=== PATIENT | female | born 1975 | race Caucasian/White ===

== ENCOUNTER 2017-01-27 09:23 | Emergency (ER) | payer BC ==
[~2017-01-27] VITALS: Ht 170.2 cm; Wt 81.8 kg
[2017-01-27] MEDS ORDERED: BIOT50004 PO (09:38)
[2017-01-27] MEDS ORDERED: BENA25CA4 PO (09:38)
[2017-01-27] MEDS ORDERED: MULT1TAB18 PO (09:38)
[2017-01-27] MEDS ORDERED: MORPHINE 4 MG/ML 1ML SYRINGE IV ONE (10:15)
[2017-01-27] MEDS ORDERED: ONDANSETRON 4MG/2ML VIAL (J2405) IV ONE (10:15)
[2017-01-27] MEDS ORDERED: NS 1,000 ML IV ONE (10:15)
[2017-01-27] MEDS ORDERED: GASTROGRAFIN SOLUTION 30ML PO ONE (10:30)
[2017-01-27 10:38] LABS: BASO % 0.4 % (0.0-1.0); EOS # 0.2 K/mm3 (0.0-0.50); EOS % 3.3 % (0.0-3.0); LARGE UNSTAINED CELL # 0.2 K/mm3 (0.0-0.4); LARGE UNSTAINED CELL % 2.7 % (0.0-4.0); LYMPH # 1.8 K/mm3 (1.5-4.5); LYMPH % 27.1 % (24.0-44.0); MEAN CORPUSCULAR HGB CONC 34.5 g/dl (32.0-36.5); MEAN CORPUSCULAR VOLUME 86.8 fl (80.0-96.0); MONO # 0.5 K/mm3 (0.0-0.8); MONO % 7.4 % (0.0-5.0); NEUTROPHILS # 3.6 K/mm3 (1.8-7.7); NEUTROPHILS % 59.1 % (36.0-66.0); PLATELET COUNT, AUTOMATED 291 k/mm3 (150-450); WHITE BLOOD COUNT 6.1 K/mm3 (4.0-10.0)
[2017-01-27] MEDS ORDERED: GASTROGRAFIN SOLUTION 30ML (Q9963) PO ONE (11:00)
[2017-01-27 11:05] LABS: ALBUMIN 3.9 GM/DL (3.2-5.2); ALBUMIN/GLOBULIN RATIO 1.18 (1.00-1.93); ALKALINE PHOSPHATASE 88 U/L (45-117); ALT/SGPT 28 U/L (12-78); AMYLASE 58 U/L (25-115); ANION GAP 6 MEQ/L (8-16); AST/SGOT 20 U/L (15-37); BILIRUBIN,DIRECT < 0.1 MG/DL (0.0-0.2); BILIRUBIN,TOTAL 0.4 MG/DL (0.2-1.0); BLOOD UREA NITROGEN 13 MG/DL (7-18); CALCIUM LEVEL 9.5 MG/DL (8.5-10.1); CARBON DIOXIDE LEVEL 28 MEQ/L (21-32); CHLORIDE LEVEL 103 MEQ/L (98-107); CREATININE FOR GFR 0.74 MG/DL (0.55-1.02); GLOMERULAR FILTRATION RATE > 60.0 (>58); GLUCOSE, FASTING 88 MG/DL (70-105); POTASSIUM SERUM 4.4 MEQ/L (3.5-5.1); SODIUM LEVEL 137 MEQ/L (136-145); TOTAL PROTEIN 7.2 GM/DL (6.4-8.2)
[2017-01-27] MEDS ORDERED: ISOVUE-370 76% 100ML VIAL (Q9967) As Ordered ONE (11:40)
--- NOTE | 2017-01-27 12:53 | REP ---
CT of the abdomen and pelvis with IV and bowel contrast: There are no comparison studies. The visualized lung fraser are unremarkable. The hepatic parenchyma, gallbladder, pancreas and spleen are unremarkable. The adrenals, kidneys and abdominal aorta are unremarkable. There is no bowel distension. The mesentery is unremarkable. There is wall thickening of the descending colon and sigmoid colon compatible with colitis in the appropriate clinical context. There are no diverticula. Pelvis: There is a hysterectomy. Vaginal cuff and adnexa are unremarkable. The bladder is unremarkable. The appendix is unremarkable. There is no ascites or adenopathy. Impression: Nonspecific wall thickening of the descending colon and sigmoid colon. In the appropriate clinical context this could represent colitis, otherwise could be artifact from under distension. No ascites, mass or adenopathy. No bowel distension or obstruction. Otherwise, negative CT study of the abdomen and pelvis. Signed by Arcadio Ramos MD 01/27/2017 12:44 P
[2017-01-27] MEDS ORDERED: FLAG500T PO (12:59)
[2017-01-27] MEDS ORDERED: CIPR-249 PO (12:59)
[2017-01-27] MEDS ORDERED: CIPROFLOXACIN 500 MG TAB PO ONE (13:00)
[2017-01-27] MEDS ORDERED: metroNIDAZOLE (FLAGYL) 500 MG TAB PO ONE (13:00)
[2017-01-27 13:09] VITALS: BP 95/61
== END 2017-01-27 13:19 | disposition home or self-care (01) ==
LOC: M ED 09:23 → MERGE 09:23 → M ED 13:19
DX: K57.32 Diverticulitis of large intestine without perforation or abscess without bleeding (principal); R10.32 Left lower quadrant pain; R11.2 Nausea with vomiting, unspecified; R19.7 Diarrhea, unspecified; G47.33 Obstructive sleep apnea (adult) (pediatric); M79.7 Fibromyalgia; F33.8 Other recurrent depressive disorders; Z88.0 Allergy status to penicillin; Z79.899 Other long term (current) drug therapy
CPT/HCPCS: 36415; 74177; 80048; 80076; 81001; 82150; 83690; 85025; 96361; 96374; 96375; 99284; J2405; Q9963; Q9967

== ENCOUNTER → 2017-02-18 | Outpatient (CLI) | payer BC ==
[~2017-02-18] MED LIST: BENA25CA4 PO; BIOT50004 PO; CIPR-249 PO; FLAG500T PO; MULT1TAB18 PO
--- NOTE | 2017-02-18 09:19 | REPMRS ---
Patient History The patient states she has not had a clinical breast exam in over a year. Patient is postmenopausal. Family history of colorectal cancer in father at age 50 or over. Digital Woman Screen Mammo: February 18, 2017 - Exam #: [id number] Bilateral CC and MLO view(s) were taken. Technologist: Shasta Sheldon, Technologist FINDINGS: The breast tissue is heterogeneously dense. This may lower the sensitivity of mammography. There is no evidence of cancer on this mammogram. ASSESSMENT: BI-RADS/ACR category 2 mammogram. Benign finding(s). Recommendation Routine screening mammogram of both breasts in 1 year (for women over age 40). This mammogram was interpreted with the aid of an FDA-approved computer-aided dectection system. Electronically Signed By: Arcadio Ruano MD 02/18/17 0919
== END ==
LOC: M WHC 08:22
PROVIDERS: ATTEND Hospitalist
DX: Z12.31 Encounter for screening mammogram for malignant neoplasm of breast (principal)

== ENCOUNTER → 2017-06-26 | Outpatient (REF) | payer BC ==
[2017-06-26 18:54] LABS: FOLATE 22.7 NG/ML
== END ==
LOC: M SFHCPLAZ 14:29
DX: L21.9 Seborrheic dermatitis, unspecified (principal)

== ENCOUNTER → 2017-07-08 | Outpatient (REF) | payer BC ==
[2017-07-08 18:15] LABS: BASO % 0.4 % (0.0-1.0); EOS # 0.3 10^3/uL (0.0-0.50); EOS % 3.6 % (0.0-3.0); HEMATOCRIT 39.3 % (36.0-47.0); HEMOGLOBIN 12.9 g/dl (12.0-16.0); IMMATURE GRANULOCYTE % 0.2 % (0-0); LYMPH # 2.4 10^3/uL (1.5-4.5); LYMPH % 29.2 % (24.0-44.0); MEAN CORPUSCULAR HEMOGLOBIN 28.8 pg (27.0-33.0); MEAN CORPUSCULAR HGB CONC 32.8 g/dl (32.0-36.5); MEAN CORPUSCULAR VOLUME 87.7 fl (80.0-96.0); MONO # 0.8 10^3/uL (0.0-0.8); MONO % 9.2 % (0.0-5.0); NEUTROPHILS # 4.7 10^3/uL (1.8-7.7); NEUTROPHILS % 57.4 % (36.0-66.0); PLATELET COUNT, AUTOMATED 321 10^3/uL (150-450); RED BLOOD COUNT 4.48 10^6/uL (4.00-5.40); RED CELL DISTRIBUTION WIDTH 11.7 % (11.5-14.5); WHITE BLOOD COUNT 8.2 10^3/uL (4.0-10.0)
[2017-07-08 18:39] LABS: LIPASE 307 U/L (73-393)
== END ==
LOC: M SFHCPLAZ 15:20
DX: R10.32 Left lower quadrant pain (principal)
CPT/HCPCS: 83690

== ENCOUNTER → 2017-10-20 | Outpatient (CLI) | payer BC | LOC: M SMT 14:28 | DX: M25.552 Pain in left hip (principal) | CPT/HCPCS: 73502 ==

== ENCOUNTER → 2018-02-14 | Outpatient (REF) | payer BC ==
[2018-02-14 22:28] LABS: APPEARANCE, URINE CLOUDY (CLEAR); BACTERIA, URINE AUTO NEGATIVE (NEGATIVE); BILIRUBIN, URINE AUTO NEGATIVE (NEGATIVE); BLOOD, URINE BLOOD 3+ (NEGATIVE); COLOR, URINE YELLOW (YELLOW); GLUCOSE, URINE (UA) AUTO NEGATIVE (NEGATIVE); KETONE, URINE AUTO NEGATIVE (NEGATIVE); LEUKOCYTE ESTERASE, URINE AUTO 3+ (NEGATIVE); MUCUS, URINE SMALL (NEGATIVE); NITRITE, URINE AUTO NEGATIVE (NEGATIVE); PROTEIN, URINE AUTO 1+ mg/dL (NEGATIVE); RBC, URINE AUTO 48 /HPF (0-3); SPECIFIC GRAVITY URINE AUTO 1.027 (1.002-1.035); SQUAMOUS EPITHELIAL CELL UR AU 0 /HPF (0-6); TRANSITIONAL EPITHELIAL AUTO 1 /HPF; UROBILINOGEN, URINE AUTO 0.2 mg/dL (0.0-2.0); WBC, URINE AUTO TNTC /HPF (0-3)
== END ==
LOC: M LAB REF 22:05
DX: N39.0 Urinary tract infection, site not specified (principal)
CPT/HCPCS: 81001

== ENCOUNTER 2018-09-04 04:10 | Emergency (ER) | payer BC ==
[~2018-09-04] VITALS: Ht 170.2 cm; Wt 82.0 kg
[2018-09-04 04:55] LABS: BASO % 0.4 % (0.0-1.0); EOS # 0.2 10^3/uL (0.0-0.50); EOS % 2.2 % (0.0-3.0); HEMATOCRIT 37.8 % (36.0-47.0); HEMOGLOBIN 12.8 g/dl (12.0-15.5); LYMPH # 1.9 10^3/uL (1.5-4.5); LYMPH % 27.6 % (24.0-44.0); MEAN CORPUSCULAR HGB CONC 33.9 g/dl (32.0-36.5); MEAN CORPUSCULAR VOLUME 88.5 fl (80.0-96.0); MONO # 0.4 10^3/uL (0.0-0.8); MONO % 5.5 % (0.0-5.0); NEUTROPHILS # 4.3 10^3/uL (1.8-7.7); NEUTROPHILS % 63.9 % (36.0-66.0); PLATELET COUNT, AUTOMATED 286 10^3/uL (150-450); RED BLOOD COUNT 4.27 10^6/uL (4.00-5.40); WHITE BLOOD COUNT 6.7 10^3/uL (4.0-10.0)
[2018-09-04] MEDS ORDERED: ONDANSETRON 4MG/2ML VIAL (J2405) IV ONE (05:00)
[2018-09-04] MEDS ORDERED: MECLIZINE 25 MG TABLET PO ONE (05:00)
[2018-09-04] MEDS ORDERED: NS 1,000 ML IV ONE (05:00)
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
[2018-09-04 05:12] LABS: BLOOD UREA NITROGEN 17 MG/DL (7-18); CALCIUM LEVEL 8.9 MG/DL (8.5-10.1); CARBON DIOXIDE LEVEL 27 MEQ/L (21-32); CHLORIDE LEVEL 108 MEQ/L (98-107); CREATININE FOR GFR 0.77 MG/DL (0.55-1.30); GLOMERULAR FILTRATION RATE > 60.0 (>58); GLUCOSE, FASTING 116 MG/DL (70-100); POTASSIUM SERUM 4.3 MEQ/L (3.5-5.1); SODIUM LEVEL 141 MEQ/L (136-145)
[2018-09-04] MEDS ORDERED: diazePAM 5 MG TAB PO ONE (06:45)
[2018-09-04] MEDS ORDERED: MECL-68 PO (08:35)
--- NOTE | 2018-09-04 09:56 | REP ---
MRI BRAIN WITHOUT CONTRAST: HISTORY: Vertigo. COMPARISON: MR 04/04/[address] 09/04/2018. There are no areas of abnormal signal intensity in the brain. There is no intraparenchymal hemorrhage, infarct, mass or midline shift. The ventricular system is normal in appearance. There is no extracerebral collection. Mucosal thickening is present in the left ethmoid and right sphenoid sinuses. IMPRESSION: There is no intracranial lesion. Electronically Signed by Tuan Oshea MD 09/04/2018 10:01 A
--- NOTE | 2018-09-04 10:08 | REP ---
MRA BRAIN WITHOUT CONTRAST: HISTORY: Vertigo. 3D [id number] MR angiography was performed at the level of the [place]. There is no aneurysm, arteriovenous malformation or atherosclerotic lesion. The major intracranial vessels are patent. The vertebral arteries are equal in size. IMPRESSION: Normal MRA brain. Electronically Signed by Tuan Oshea MD 09/04/2018 10:22 A
[2018-09-04 10:25] VITALS: BP 118/73
--- NOTE | 2018-09-05 17:27 | ECGEPIP ---
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
== END 2018-09-04 10:33 | disposition home or self-care (01) ==
LOC: M ED 04:10
DX: H81.399 Other peripheral vertigo, unspecified ear (principal); Z88.0 Allergy status to penicillin; Z88.2 Allergy status to sulfonamides; F17.210 Nicotine dependence, cigarettes, uncomplicated
CPT/HCPCS: 70450; 70544; 70551; 80048; 85025; 93005; 93041; 94760; 96374; 99285; J2405

== ENCOUNTER → 2018-11-09 | Outpatient (CLI) | payer BC ==
[~2018-11-09] MED LIST changes: +MECL-68 PO
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
== END ==
LOC: M WUC 16:34
PROVIDERS: ATTEND Family Medicine
DX: M79.672 Pain in left foot (principal)

== ENCOUNTER → 2019-03-05 | Outpatient (REF) | payer OTHER ==
[~2019-03-05] MED LIST changes: +LORA-674 PO; -MECL-68 PO; +MECL1TAB31 PO; +MULTCAP PO
[2019-03-05 16:05] LABS: BASO % 0.6 % (0.0-1.0); EOS # 0.3 10^3/uL (0.0-0.50); HEMATOCRIT 40.3 % (36.0-47.0); HEMOGLOBIN 13.2 g/dl (12.0-15.5); LYMPH # 2.2 10^3/uL (1.5-4.5); LYMPH % 42.9 % (24.0-44.0); MEAN CORPUSCULAR HEMOGLOBIN 29.3 pg (27.0-33.0); MEAN CORPUSCULAR HGB CONC 32.8 g/dl (32.0-36.5); MEAN CORPUSCULAR VOLUME 89.6 fl (80.0-96.0); MONO # 0.5 10^3/uL (0.0-0.8); MONO % 8.9 % (0.0-5.0); NEUTROPHILS # 2.1 10^3/uL (1.8-7.7); NEUTROPHILS % 41.4 % (36.0-66.0); PLATELET COUNT, AUTOMATED 295 10^3/uL (150-450)
== END ==
LOC: M SFHCPLAZ 11:09
PROVIDERS: ATTEND Family Medicine
DX: K57.92 Diverticulitis of intestine, part unspecified, without perforation or abscess without bleeding (principal)

== ENCOUNTER → 2019-03-25 | Outpatient (CLI) | payer OTHER ==
[~2019-03-25] MED LIST changes: +GASTROGRAFIN SOLUTION 30ML (Q9963) As Ordered ONE; +ISOVUE-370 76% 100ML VIAL (Q9967) As Ordered ONE; +MECL-68 PO; -MECL1TAB31 PO
--- NOTE | 2019-03-26 05:27 | REP ---
Clinical: Diverticulitis. Abdominal pain. Technique: Axial contrast enhanced images from the lung bases to the pubic symphysis using oral (per protocol) and 100 ml Isovue 370 intravenous contrast material. Comparison: 01/27/2017. Findings: Lung bases are clear. Visualized heart and pericardium normal. Liver, spleen, pancreas, gallbladder, bilateral adrenal glands and kidneys are normal. The enteric system is without obstruction or acute inflammatory process. Few scattered diverticula noted without acute diverticulitis. Normal terminal ileum and appendix identified in the right lower quadrant. Pelvis demonstrates normal bladder and evidence of prior hysterectomy. No ascites. No free air. No adenopathy. Abdominal aorta and vasculature normal. Musculoskeletal structures are intact. Impression: 1. Few scattered diverticula without acute diverticulitis. 2. No acute abdominopelvic pathology appreciated. Electronically Signed by Sen Reddy MD 03/26/2019 05:19 A
== END ==
LOC: M RAD 15:22
PROVIDERS: ATTEND Obstetrics & Gynecology
DX: K57.90 Diverticulosis of intestine, part unspecified, without perforation or abscess without bleeding (principal)
CPT/HCPCS: 74177; Q9963; Q9967

== ENCOUNTER 2019-04-07 10:55 | Day surgery (SDC) | payer OTHER ==
[~2019-04-07] VITALS: Ht 170.2 cm; Wt 75.3 kg
[~2019-04-07 10:55] MED LIST changes: -GASTROGRAFIN SOLUTION 30ML (Q9963) As Ordered ONE; -ISOVUE-370 76% 100ML VIAL (Q9967) As Ordered ONE; +NS 1,000 ML IV ONE
[2019-04-07] MEDS ORDERED: PROPOFOL 200 MG/20 ML VIAL As Ordered ONE (12:34)
[2019-04-07] MEDS ORDERED: LIDOCAINE 2% INJ 100 MG/5 ML SDV (FOR ANES.) As Ordered ONE (12:34)
--- NOTE | 2019-04-07 13:01 | ROOR ---
Patient Name: Nia Groves Procedure Date: 04/07/2019 12:43 PM Date of : 1975 Age: 43 Room: [facility] Gender: Female Note Status: Finalized Procedure: Colonoscopy Indications: Abdominal pain in the right lower quadrant, Follow-up of diverticulosis of the colon Providers: Arcadio Jackson DO Referring MD: Kiki Cai Do Requesting Provider: Medicines: Propofol per Anesthesia Complications: No immediate complications. Procedure: Pre-Anesthesia Assessment: - Prior to the procedure, a History and Physical was performed, and patient medications and allergies were reviewed. The patient is competent. The risks and benefits of the procedure and the sedation options and risks were discussed with the patient. All questions were answered and informed consent was obtained. Patient identification and proposed procedure were verified by the physician, the nurse, the anesthesiologist and the fuel verification technician in the endoscopy suite. Mental Status Examination: alert and oriented. Airway Examination: normal oropharyngeal airway and neck mobility. Respiratory Examination: clear to auscultation. CV Examination: normal. Prophylactic Antibiotics: The patient does not require prophylactic antibiotics. Prior Anticoagulants: The patient has taken no previous anticoagulant or antiplatelet agents. ASA Grade Assessment: II - A patient with mild systemic disease. After reviewing the risks and benefits, the patient was deemed in satisfactory condition to undergo the procedure. The anesthesia plan was to use monitored anesthesia care (MAC). Immediately prior to administration of medications, the patient was re-assessed for adequacy to receive sedatives. The heart rate, respiratory rate, oxygen saturations, blood pressure, adequacy of pulmonary ventilation, and response to care were monitored throughout the procedure. The physical status of the patient was re-assessed after the procedure. The Colonoscope was introduced through the anus and advanced to the cecum, identified by appendiceal orifice and ileocecal valve. The colonoscopy was performed without difficulty. The patient tolerated the procedure well. Findings: A few small-mouthed diverticula were found in the sigmoid colon. Internal hemorrhoids were found during retroflexion. The hemorrhoids were mild and Grade I (internal hemorrhoids that do not prolapse). The exam was otherwise without abnormality on direct and retroflexion views. Impression: - Diverticulosis in the sigmoid colon. - Internal hemorrhoids. - The examination was otherwise normal on direct and retroflexion views. - No specimens collected. Recommendation: - Patient has a contact number available for emergencies. The signs and symptoms of potential delayed complications were discussed with the patient. Return to normal activities tomorrow. Written discharge instructions were provided to the patient. - Repeat colonoscopy in 5-10 years for screening purposes. - Return to my office PRN. Arcadio Jackson DO 04/07/2019 1:01:12 PM Electronically signed by Arcadio Jackson DO Number of Addenda: 0 Note Initiated On: 04/07/2019 12:43 PM Estimated Blood Loss: Estimated blood loss: none.
[2019-04-07 13:38] VITALS: BP 117/78
== END 2019-04-07 13:51 | disposition home or self-care (01) ==
LOC: M OPP 10:55
PROVIDERS: ATTEND Surgery
DX: R10.33 Periumbilical pain (principal); R10.32 Left lower quadrant pain; Z80.0 Family history of malignant neoplasm of digestive organs; K57.32 Diverticulitis of large intestine without perforation or abscess without bleeding; K57.30 Diverticulosis of large intestine without perforation or abscess without bleeding; K64.0 First degree hemorrhoids; E07.9 Disorder of thyroid, unspecified; M79.7 Fibromyalgia; J45.909 Unspecified asthma, uncomplicated; G47.30 Sleep apnea, unspecified; R06.83 Snoring; Z88.0 Allergy status to penicillin; Z88.2 Allergy status to sulfonamides; Z91.040 Latex allergy status; Z79.899 Other long term (current) drug therapy

== ENCOUNTER → 2019-05-10 | Outpatient (CLI) | payer OTHER ==
[~2019-05-10] MED LIST changes: -NS 1,000 ML IV ONE
--- NOTE | 2019-05-10 12:05 | REP ---
Right upper quadrant sonography: History: However quadrant pain. Comparison study: Comparison CT study is from March 25, 2019. Findings: Scanning through the right upper quadrant of the abdomen demonstrates a normal sized, thin-walled gallbladder without evidence of stone or polyp. Common bile duct is normal measuring 0.7 cm in greatest diameter. No focal liver lesion is seen. Liver size is normal. No pancreatic abnormality is observed. No right renal abnormality is seen. There is no evidence of ascites. The right kidney measures 10.9 x 5.1 x 3.9 cm. Impression: Negative right upper quadrant sonography. Electronically Signed by Mika West MD 05/10/2019 11:56 A
== END ==
LOC: M RAD 06:59
PROVIDERS: ATTEND Obstetrics & Gynecology
DX: R10.9 Unspecified abdominal pain (principal)

== ENCOUNTER 2019-06-28 11:19 | Emergency (ER) | payer OTHER ==
[~2019-06-28] VITALS: Ht 167.6 cm; Wt 77.6 kg
[2019-06-28 11:55] LABS: BASO % 0.3 % (0.0-1.0); EOS # 0.1 10^3/uL (0.0-0.5); EOS % 1.9 % (0.0-3.0); HEMOGLOBIN 13.4 g/dl (12.0-15.5); LYMPH # 0.9 10^3/uL (1.5-5.0); LYMPH % 13.4 % (24.0-44.0); MEAN CORPUSCULAR HEMOGLOBIN 29.8 pg (27.0-33.0); MEAN CORPUSCULAR HGB CONC 33.5 g/dl (32.0-36.5); MEAN CORPUSCULAR VOLUME 89.1 fl (80.0-96.0); MONO # 0.6 10^3/uL (0.0-0.8); MONO % 8.5 % (0.0-5.0); NEUTROPHILS # 4.9 10^3/uL (1.5-8.5); NEUTROPHILS % 75.6 % (36.0-66.0); PLATELET COUNT, AUTOMATED 219 10^3/uL (150-450); RED BLOOD COUNT 4.49 10^6/uL (4.00-5.40); WHITE BLOOD COUNT 6.4 10^3/uL (4.0-10.0)
[2019-06-28 12:37] LABS: ALT/SGPT 43 U/L (12-78); BILIRUBIN,DIRECT < 0.1 MG/DL (0.0-0.2); BILIRUBIN,TOTAL 0.3 MG/DL (0.2-1.0); LIPASE 548 U/L (73-393); TOTAL PROTEIN 7.3 GM/DL (6.4-8.2)
[2019-06-28] MEDS: GASTROGRAFIN SOLUTION 30ML PO SCH ×2 (12:49→13:19)
[2019-06-28] MEDS ORDERED: ISOVUE-370 76% 100ML VIAL (Q9967) As Ordered ONE (13:22)
--- NOTE | 2019-06-28 14:29 | REP ---
Clinical: Abdominal pain and rectal bleeding. Technique: Axial contrast enhanced images from the lung bases to the pubic symphysis using oral (per protocol) and 100 ml Isovue 370 intravenous contrast material. Comparison: 03/25/2019. Findings: Lung bases are clear. Visualized heart and pericardium normal. Mild fatty infiltration to the liver suggested without focal hepatic lesion. Spleen, pancreas, gallbladder, bilateral adrenal glands and kidneys are normal. The enteric system is without obstruction or acute inflammatory process. Normal cecum, terminal ileum and appendix identified. Colonic diverticula noted without acute diverticulitis. Pelvis demonstrates normal bladder and evidence of prior hysterectomy. No ascites. No free air. No adenopathy. Musculoskeletal structures are intact without focal abnormality. Impression: 1. Diverticulosis without acute diverticulitis. 2. Hepatic steatosis. 3. No further acute abdominopelvic pathology appreciated. Electronically Signed by Sen Reddy MD 06/28/2019 02:20 P
[2019-06-28 14:54] VITALS: BP 112/71
== END 2019-06-28 15:42 | disposition home or self-care (01) ==
LOC: M ED 11:19
DX: R74.8 Abnormal levels of other serum enzymes (principal); K57.30 Diverticulosis of large intestine without perforation or abscess without bleeding; K64.9 Unspecified hemorrhoids; J45.909 Unspecified asthma, uncomplicated; E05.90 Thyrotoxicosis, unspecified without thyrotoxic crisis or storm; G47.33 Obstructive sleep apnea (adult) (pediatric); R42 Dizziness and giddiness; K21.9 Gastro-esophageal reflux disease without esophagitis; Z80.0 Family history of malignant neoplasm of digestive organs; K76.0 Fatty (change of) liver, not elsewhere classified; Z79.899 Other long term (current) drug therapy; Z88.0 Allergy status to penicillin; Z88.2 Allergy status to sulfonamides; Z88.6 Allergy status to analgesic agent; Z88.5 Allergy status to narcotic agent
CPT/HCPCS: 74177; 80047; 80076; 83690; 84702; 85025; 99284; Q9963; Q9967

== ENCOUNTER → 2019-07-02 | Outpatient (CLI) | payer OTHER ==
[2019-07-02 14:14] LABS: BASO % 0.7 % (0.0-1.0); EOS # 0.3 10^3/uL (0.0-0.5); EOS % 6.1 % (0.0-3.0); HEMATOCRIT 39.2 % (36.0-47.0); LYMPH % 44.6 % (24.0-44.0); MEAN CORPUSCULAR HEMOGLOBIN 29.7 pg (27.0-33.0); MEAN CORPUSCULAR HGB CONC 33.2 g/dl (32.0-36.5); MEAN CORPUSCULAR VOLUME 89.7 fl (80.0-96.0); MONO # 0.3 10^3/uL (0.0-0.8); NEUTROPHILS # 1.9 10^3/uL (1.5-8.5); NEUTROPHILS % 41.4 % (36.0-66.0); PLATELET COUNT, AUTOMATED 239 10^3/uL (150-450); RED BLOOD COUNT 4.37 10^6/uL (4.00-5.40); WHITE BLOOD COUNT 4.5 10^3/uL (4.0-10.0)
== END ==
LOC: M PLALAB 09:17
PROVIDERS: ATTEND Physician Assistant Medical
DX: R74.8 Abnormal levels of other serum enzymes (principal); K62.5 Hemorrhage of anus and rectum

== ENCOUNTER → 2019-08-02 | Outpatient (CLI) | payer OTHER ==
[~2019-08-02] MED LIST changes: -MECL-68 PO; +MECL1TAB31 PO
[2019-08-02 18:31] LABS: BLOOD UREA NITROGEN 15 MG/DL (7-18); CALCIUM LEVEL 8.9 MG/DL (8.5-10.1); CARBON DIOXIDE LEVEL 31 MEQ/L (21-32); CHLORIDE LEVEL 106 MEQ/L (98-107); CHOLESTEROL LEVEL 205 MG/DL (<200); CREATININE FOR GFR 0.94 MG/DL (0.55-1.30); GLOMERULAR FILTRATION RATE > 60.0 (>58); GLUCOSE, FASTING 74 MG/DL (70-100); HDL CHOLESTEROL 41 MG/DL (>40); LDL CHOLESTEROL 113 MG/DL (<100); NON-HDL-C 164 MG/DL; POTASSIUM SERUM 4.8 MEQ/L (3.5-5.1); SODIUM LEVEL 142 MEQ/L (136-145); TRIGLYCERIDES LEVEL 255 MG/DL (<150)
== END ==
LOC: M PLALAB 13:31
PROVIDERS: ATTEND Obstetrics & Gynecology
DX: Z13.220 Encounter for screening for lipoid disorders (principal); Z13.1 Encounter for screening for diabetes mellitus

== ENCOUNTER → 2019-08-02 | Outpatient (CLI) | payer OTHER ==
--- NOTE | 2019-08-26 15:10 | DEXA ---
AP SPINE L1 - L4 0.966 -1.8 -1.8 LT FEMUR TOTAL 0.810 -1.6 -1.2 LT NECK 0.811 -1.6 -1.0 RT FEMUR TOTAL 0.816 -1.5 -1.2 RT NECK 0.793 -1.8 -1.2 TOTAL BODY TOTAL OTHER COMMENTS: There is low bone density of the spine and hips. FOLLOW-UP: Recommendation for the next bone density exam: 2 years. MOUNA
== END ==
LOC: M WHC 13:04
PROVIDERS: ATTEND Obstetrics & Gynecology
DX: Z13.820 Encounter for screening for osteoporosis (principal); M85.851 Other specified disorders of bone density and structure, right thigh; M85.852 Other specified disorders of bone density and structure, left thigh; M85.88 Other specified disorders of bone density and structure, other site

== ENCOUNTER → 2019-10-13 | Outpatient (REF) | payer OTHER ==
[2019-10-13 13:40] LABS: BASO % 0.7 % (0.0-1.0); EOS # 0.2 10^3/uL (0.0-0.5); EOS % 4.1 % (0.0-3.0); HEMATOCRIT 40.3 % (36.0-47.0); HEMOGLOBIN 13.6 g/dl (12.0-15.5); LYMPH # 2.1 10^3/uL (1.5-5.0); LYMPH % 36.9 % (24.0-44.0); MEAN CORPUSCULAR HGB CONC 33.7 g/dl (32.0-36.5); MONO # 0.5 10^3/uL (0.0-0.8); MONO % 8.8 % (0.0-5.0); NEUTROPHILS # 2.7 10^3/uL (1.5-8.5); NEUTROPHILS % 49.3 % (36.0-66.0); PLATELET COUNT, AUTOMATED 282 10^3/uL (150-450); RED BLOOD COUNT 4.53 10^6/uL (4.00-5.40); WHITE BLOOD COUNT 5.6 10^3/uL (4.0-10.0)
== END ==
LOC: M SFHCPLAZ 11:29
PROVIDERS: ATTEND Student in an Organized Health Care Education/Training Program
DX: K57.90 Diverticulosis of intestine, part unspecified, without perforation or abscess without bleeding (principal)

== ENCOUNTER → 2019-10-27 | Outpatient (CLI) | payer OTHER ==
--- NOTE | 2019-10-28 12:36 | SLEEPHOME ---
DATE OF STUDY: 10/27/2019 ORDERING PROVIDER: HETAL Morris Diagnostic home sleep testing was performed due to concern for the obstructive sleep apnea syndrome in this patient with a history of excessive somnolence, snoring, and nonrestorative sleep who has a prior history of obstructive sleep apnea syndrome and asthma. For testing, a nocturnal T3 respiratory monitoring device was used. Continuous record was made of pulse, oxygen saturation, airflow, chest and abdominal strain, and body position. 9 hours and 59 minutes of data were reviewed. There were 8 hours and 23 minutes marked as time in bed. During the interval marked time in bed, there were 46 respiratory events identified of 10 seconds in duration or greater for a respiratory event index of 5.5. The events were obstructive, more frequent, but not exclusive to the supine posture. Baseline pulse rate 59, pulse rate ranged 49-90. Baseline saturation was 93%. Saturations fell as low as 84%. Testing was performed in both the supine and nonsupine positions. IMPRESSION: Abnormal home sleep testing with repetitive respiratory events and oxygen desaturations to 84% with a respiratory event index of 5.5 is consistent with the obstructive sleep apnea syndrome. RECOMMENDATION: The patient should be encouraged to undergo formal sleep evaluation.
== END ==
LOC: M SLEEP HO 13:43
PROVIDERS: ATTEND Physician Assistant
DX: G47.30 Sleep apnea, unspecified (principal); R40.0 Somnolence; R06.83 Snoring

== ENCOUNTER → 2019-11-10 | Outpatient (REF) | LOC: M LAB 09:53 | PROVIDERS: ATTEND Nurse Practitioner Adult Health | DX: Z02.89 Encounter for other administrative examinations (principal) ==

== ENCOUNTER 2020-01-17 16:29 | Emergency (ER) | payer OTHER ==
[~2020-01-17] VITALS: Ht 170.2 cm; Wt 80.2 kg
[2020-01-17] MEDS ORDERED: KETOROLAC 30 MG/ML 1ML VIAL IV ONE (17:00)
[2020-01-17] MEDS ORDERED: NS 1,000 ML IV ONE (17:00)
[2020-01-17] MEDS ORDERED: ISOVUE-370 76% 100ML VIAL As Ordered ONE (17:11)
[2020-01-17 17:21] LABS: BASO % 0.6 % (0.0-1.0); EOS # 0.3 10^3/uL (0.0-0.5); HEMATOCRIT 41.8 % (36.0-47.0); HEMOGLOBIN 13.9 g/dl (12.0-15.5); LYMPH # 2.8 10^3/uL (1.5-5.0); LYMPH % 41.5 % (24.0-44.0); MEAN CORPUSCULAR HEMOGLOBIN 29.1 pg (27.0-33.0); MEAN CORPUSCULAR HGB CONC 33.3 g/dl (32.0-36.5); MEAN CORPUSCULAR VOLUME 87.4 fl (80.0-96.0); MONO # 0.8 10^3/uL (0.0-0.8); MONO % 11.6 % (0.0-5.0); NEUTROPHILS # 2.8 10^3/uL (1.5-8.5); PLATELET COUNT, AUTOMATED 275 10^3/uL (150-450); RED BLOOD COUNT 4.78 10^6/uL (4.00-5.40); WHITE BLOOD COUNT 6.8 10^3/uL (4.0-10.0)
[2020-01-17 17:42] LABS: ALT/SGPT 25 U/L (12-78); BILIRUBIN,DIRECT < 0.1 MG/DL (0.0-0.2); BILIRUBIN,TOTAL 0.3 MG/DL (0.2-1.0); CK-MB VALUE MASS 1.2 NG/ML (<3.6); CPK CREATINE PHOSPHOKINASE 103 U/L (26-192); LIPASE 230 U/L (73-393); MB/CK RELATIVE INDEX 1.17 (< OR =4); TOTAL PROTEIN 7.5 GM/DL (6.4-8.2); TROPONIN I < 0.02 NG/ML (< 0.10)
--- NOTE | 2020-01-17 18:08 | REPVR ---
PROCEDURE INFORMATION: Exam: CT Abdomen And Pelvis With Contrast Exam date and time: 01/17/2020 5:33 PM Age: 44 years old Clinical indication: Abdominal pain; Epigastric; Additional info: Epigastric pain, 20lb weight loss, HX divertic TECHNIQUE: Imaging protocol: Computed tomography of the abdomen and pelvis with intravenous contrast. Radiation optimization: All CT scans at this facility use at least one of these dose optimization techniques: automated exposure control; mA and/or kV adjustment per patient size (includes targeted exams where dose is matched to clinical indication); or iterative reconstruction. Contrast material: ISOVUE 370; Contrast volume: 100 ml; Contrast route: INTRAVENOUS (IV); COMPARISON: CT ABD/PEL W/IV ORAL CONTRAS 06/28/2019 2:15 PM FINDINGS: Mediastinal space: A small sliding hiatal hernia is present. There is asymmetric thickening of the wall of the distal esophagus at the GE junction. Clinical correlation to exclude neoplasm suggested. Liver: Normal. No mass. Gallbladder and bile ducts: Normal. No calcified stones. No ductal dilation. Pancreas: Normal. No ductal dilation. Spleen: Top normal splenic size. No focal splenic abnormality. Adrenals: Normal. No mass. Kidneys and ureters: Normal. No hydronephrosis. Stomach and bowel: Unremarkable. No obstruction. No mucosal thickening. Appendix: No evidence of appendicitis. Intraperitoneal space: Unremarkable. No free air. No significant fluid collection. Vasculature: Unremarkable. No abdominal aortic aneurysm. Lymph nodes: Unremarkable. No enlarged lymph nodes. Bladder: Unremarkable as visualized. Reproductive: There has been a hysterectomy. Bones/joints: Mild to moderate central spinal stenosis at L4-L5 with mild anterolisthesis of L4 on L5. Diffusely bulging annulus L5-S1 without significant spinal stenosis. Soft tissues: There is a small umbilical hernia. There is no evidence of incarceration. IMPRESSION: 1. Top normal splenic size. No focal splenic abnormality. 2. A small sliding hiatal hernia is present. There is asymmetric thickening of the wall of the distal esophagus at the GE junction. Clinical correlation to exclude neoplasm suggested. 3. There has been a hysterectomy. Electronically signed by: Griffin Boggs On 01/17/2020 18:07:44 PM
[2020-01-17] MEDS ORDERED: OMEP40CA97 PO (19:24)
[2020-01-17 19:38] VITALS: BP 126/87
--- NOTE | 2020-01-18 08:16 | ECGEPIP ---
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
--- NOTE | 2020-01-18 13:20 | ED PDOC ---
Post-Departure Follow-Up dr [facility] faxed formal report of ct abd/p for fu Penny Squires MD Jan 18, 2020 13:20
== END 2020-01-17 19:40 | disposition home or self-care (01) ==
LOC: M ED 16:29
DX: R10.13 Epigastric pain (principal); K44.9 Diaphragmatic hernia without obstruction or gangrene; K22.8 Other specified diseases of esophagus; R00.1 Bradycardia, unspecified; Z79.899 Other long term (current) drug therapy; Z88.0 Allergy status to penicillin; Z88.2 Allergy status to sulfonamides; Z88.6 Allergy status to analgesic agent; Z88.5 Allergy status to narcotic agent
CPT/HCPCS: 74177; 80047; 80076; 81001; 82550; 82553; 83690; 85025; 87086; 93005; 96361; 96374; 99284; J1885; Q9967

== ENCOUNTER 2020-09-01 12:32 | Day surgery (SDC) | payer OTHER ==
[~2020-09-01] VITALS: Ht 170.2 cm; Wt 81.2 kg
[~2020-09-01 12:32] MED LIST changes: +NO ITAB PO; +NS 1,000 ML IV ONE; +OMEP40CA97 PO
[2020-09-01] MEDS ORDERED: LIDOCAINE 2% 100MG/5ML SDV (FOR ANES.) As Ordered ONE (13:00)
[2020-09-01] MEDS ORDERED: fentaNYL 100 MCG/2 ML INJECTION (J3010) As Ordered ONE (13:01)
[2020-09-01] MEDS ORDERED: propofoL 200 MG/20 ML VIAL As Ordered ONE (13:01)
--- NOTE | 2020-09-01 13:59 | ROOR ---
Patient Name: Nia Groves Procedure Date: 09/01/2020 1:30 PM Date of : 1975 Age: 45 Room: [facility] Gender: Female Note Status: Finalized Procedure: Upper GI endoscopy Indications: Dysphagia, Abnormal CT of the GI tract Providers: Baljit Bansal MD Referring MD: Rola Malhotra DO Requesting Provider: Medicines: Monitored Anesthesia Care Complications: No immediate complications. Procedure: Pre-Anesthesia Assessment: - Prior to the procedure, a History and Physical was performed, and patient medications and allergies were reviewed. The patient is competent. The risks and benefits of the procedure and the sedation options and risks were discussed with the patient. All questions were answered and informed consent was obtained. Patient identification and proposed procedure were verified by the physician, the nurse and the anesthesiologist in the procedure room. Mental Status Examination: alert and oriented. Airway Examination: normal oropharyngeal airway and neck mobility. Respiratory Examination: clear to auscultation. CV Examination: normal. Prophylactic Antibiotics: The patient does not require prophylactic antibiotics. Prior Anticoagulants: The patient has taken no previous anticoagulant or antiplatelet agents. ASA Grade Assessment: II - A patient with mild systemic disease. After reviewing the risks and benefits, the patient was deemed in satisfactory condition to undergo the procedure. The anesthesia plan was to use monitored anesthesia care (MAC). Immediately prior to administration of medications, the patient was re-assessed for adequacy to receive sedatives. The heart rate, respiratory rate, oxygen saturations, blood pressure, adequacy of pulmonary ventilation, and response to care were monitored throughout the procedure. The physical status of the patient was re-assessed after the procedure. The Endoscope was introduced through the mouth, and advanced to the second part of duodenum. The upper GI endoscopy was accomplished without difficulty. The patient tolerated the procedure well. Findings: Moderately severe esophagitis with no bleeding was found 33 to 35 cm from the incisors. Biopsies were taken with a cold forceps for histology. Verification of patient identification for the specimen was done by the physician and nurse using the patient's name, date and medical record number. Estimated blood loss was minimal. Patchy mild inflammation characterized by congestion (edema), erythema and granularity was found in the gastric antrum. Biopsies were taken with a cold forceps for Helicobacter pylori testing. Biopsies were taken with a cold forceps for histology. The duodenal bulb, second portion of the duodenum and third portion of the duodenum were normal. Impression: - Moderately severe reflux esophagitis. Rule out Sherman's esophagus. Biopsied. - Gastritis. Biopsied. - Normal duodenal bulb, second portion of the duodenum and third portion of the duodenum. Recommendation: - Patient has a contact number available for emergencies. The signs and symptoms of potential delayed complications were discussed with the patient. Return to normal activities tomorrow. Written discharge instructions were provided to the patient. - High fiber diet. - Continue present medications. - Await pathology results. - Use Prilosec (omeprazole) 20 mg PO twice daily - to be taken counter attendant 1/2 hour before breakfast(on empty stomach) and again at bedtime ( atleast 3 hours after last meal) for 8 weeks. - Follow an antireflux regimen. - Telephone GI clinic for pathology results in 2 weeks. - Repeat upper endoscopy in 1 year for surveillance based on pathology results. - Return to primary care physician. Procedure Code(s): --- Professional --- 14442, Esophagogastroduodenoscopy, flexible, transoral; with biopsy, single or multiple Diagnosis Code(s): --- Professional --- K21.0, Gastro-esophageal reflux disease with esophagitis K29.70, Gastritis, unspecified, without bleeding R13.10, Dysphagia, unspecified R93.3, Abnormal findings on diagnostic imaging of other parts of digestive tract CPT copyright 2019 [employer]. All rights reserved. The codes documented in this report are preliminary and upon it application development manager review may be revised to meet current compliance requirements. Baljit Bansal MD Baljit Bansal MD 09/01/2020 1:59:08 PM Electronically signed by Baljit Bansal MD Number of Addenda: 0 Note Initiated On: 09/01/2020 1:30 PM Estimated Blood Loss: Estimated blood loss was minimal.
--- OUTSIDE RECORDS SUMMARY | 2020-09-01 14:23 | CCD ---
Author Author [facility] Organization [facility] Address Unknown Phone Unavailable Support Name Relationship Address Phone [facility]* Next Of Kin [address] [place] [address] SK* Next Of Kin [address] [place] [address] NAMRATA MCLAU[place] [address] Namrata Mclaughlin Next Of Kin Unknown Unavailable Víctor Walter DDS Next Of Kin [address] [place] [address] [employer] Next Of Kin [address] [facility] [place] [address] SONA [place] [address] UN ELIF BLAKE [place] [address] [employer] Next Of Kin [address] [place] [address] ALE REIS Next Of [place] [address] SHASHANK BLAKE Next Of Kin [address] [place] [address] NO, STATES Next Of Kin Unknown Unavailable NO ONE, STATES Next Of Kin Unknown Unavailable [employer] Next Of Kin [address] [place] [address] KAROLINE BLAKE Next Of Kin [address] [place] [address] NONI GARDUNO JR Next Of Kin [address] [place] [address] FÉLIX JEAN Next Of Kin [address] [place] [address] [place] [address] Unavailable Care Team Providers Care Grappler Name Role Phone KARELY STEARNS Unavailable Unavailable Re-disclosure Warning The records that you are about to access may contain information from federally-assisted alcohol or drug abuse programs. If such information is present, then the following federally mandated warning applies: This information has been disclosed to you from records protected by federal confidentiality rules (42 CFR part 2). The federal rules prohibit you from making any further disclosure of this information unless further disclosure is expressly permitted by the written consent of the person to whom it pertains or as otherwise permitted by 42 CFR part 2. A general authorization for the release of medical or other information is NOT sufficient for this purpose. The Federal rules restrict any use of the information to criminally investigate or prosecute any alcohol or drug abuse patient.The records that you are about to access may contain highly sensitive health information, the redisclosure of which is protected by Article 27-F of the [facility] Public Health law. If you continue you may have access to information: Regarding HIV / AIDS; Provided by facilities licensed or operated by the [facility] Office of Mental Health; or Provided by the [facility] Office for People With Developmental Disabilities. If such information is present, then the following [facility] mandated warning applies: This information has been disclosed to you from confidential records which are protected by state law. State law prohibits you from making any further disclosure of this information without the specific written consent of the person to whom it pertains, or as otherwise permitted by law. Any unauthorized further disclosure in violation of state law may result in a fine or halfway sentence or both. A general authorization for the release of medical or other information is NOT sufficient authorization for further disc losure. Allergies and Adverse Reactions Type Description Substance Reaction Status Data Source(s ) Drug allergy Penicillin V Potassium Penicillin V Hives Active eCW1 ([facility]) Food allergy SULFA DRUGS SULFA DRUGS [facility] Drug allergy PENICILLIN PENICILLIN [facility] Family History Family Member Name Family Member Gender Family Member Status Date o f Status Description Data Source(s) Unknown Unknown Problem MEDENT ([facility]) Encounters Encounter Providers Location Date Indications Data Source(s ) [place] [address] [facility] [address] 05/15/2020 12:00:00 AM EST eCW1 ([facility]) Unknown [address] [facility] [address] 04/20/2020 12:00:00 AM EDT eCW1 ([facility]) Unknown [address] [facility] [place] [address] 04/14/2020 12:00:00 AM EDT eCW1 ([facility]) Unknown [address] [facility] [address] 01/18/2020 12:00:00 AM EDT eCW1 ([facility]) Unknown [address] [facility] [place] [address] 01/17/2020 12:00:00 AM EDT eCW1 ([facility]) Outpatient Attender: KARELY [facility] 12/14/2019 08:02:49 PM EDT [facility] GME Resident [address] [place] [address] 11/01/2019 12:00:00 AM EDT eCW1 ([facility]) [facility] [address] [place] [address] [place] [address] 10/29/2019 12:00:00 AM EDT eCW1 ([facility]) [facility] [address] [place] [address] [place] [address] 10/13/2019 12:00:00 AM EDT eCW1 ([facility]) [facility] Resident [address] [place] [address] 10/13/2019 12:00:00 AM EDT eCW1 ([facility]) [address] [place] [address] 09/29/2019 12:00:00 AM EDT eCW1 ([facility]) [address] [place] [address] 09/17/2019 12:00:00 AM EDT eCW1 ([facility]) [facility] [address] [facility], [facility] [address] 09/16/2019 12:00:00 AM EDT eCW1 [facility] Outpatient Attender: K[facility]ELY [facility] 09/14/2019 09:13:00 AM EDT [facility] GME Resident [address] [place] [address] 09/08/2019 12:00:00 AM EST eCW1 [facility] Outpatient Attender: JOY [facility] 08/24/2019 09:28:03 AM [facility] Outpatient Attender[facility] JOY [facility] 08/24/2019 09:28:01 AM [facility] Outpatient Attender: JOY [facility] 08/20/2019 09:19:22 AM [facility] [address] [facility] [address] 08/19/2019 12:00:00 AM EST eCW1 ([facility]) Outpatient Attender: JOY [facility] 08/11/2019 11:05:01 AM [facility] Outpatient Attender: JOY [facility] 08/10/2019 12:00:09 AM [facility] Outpatient Attender: JOY [facility] 08/09/2019 04:48:01 PM [facility] Outpatient Attender: JOY [facility] 08/09/2019 03:48:01 PM [facility] Outpatient Attender: JOY [facility] 08/09/2019 03:44:01 PM [facility] Outpatient Attender: JOY [facility] 08/09/2019 03:43:00 PM [facility] Outpatient Attender: JOY [facility] 08/09/2019 03:09:01 PM [facility] Outpatient 08/06/2019 08:44:00 AM EST [facility] GME Resident [address] [place] [address] 08/02/2019 12:00:00 AM EST eCW1 ([facility]) Outpatient 07/15/2019 09:05:00 PM EST [facility] [address], [facility] [address] 07/12/2019 12:00:00 AM EST eCW1 ([facility]) Medications Medication Brand Name Start Date Product Form Dose Route Admi nistrative Instructions Pharmacy Instructions Status Indications Reaction Description Data Source(s) Omeprazole 20 MG Delayed Release Oral Capsule Omeprazole 20 MG 05/15/2020 12:00:00 AM EST active Omeprazo le 20 MG eCW1 ([facility]) Doxycycline Monohydrate 100 MG Oral Tablet Doxycycline Monoh ydrate 100 MG 09/17/2019 12:00:00 AM EDT active 1 tablet eCW1 ([facility]) Doxycycline Monohydrate 100 MG Oral Tablet Doxycycline Monoh ydrate 100 MG 09/17/2019 12:00:00 AM EDT 1.0 {tablet} suspende d Doxycycline Monohydrate 100 MG eCW1 ([facility]) Doxycycline Monohydrate 100 MG Oral Tablet Doxycycline Monoh ydrate 100 MG 09/17/2019 12:00:00 AM EDT 1.0 {tablet} suspende d Doxycycline Monohydrate 100 MG eCW1 ([facility]) Doxycycline Monohydrate 100 MG Oral Tablet Doxycycline Monoh ydrate 100 MG 09/17/2019 12:00:00 AM EDT 1.0 {tablet} suspende d Doxycycline Monohydrate 100 MG eCW1 ([facility]) Doxycycline Monohydrate 100 MG Oral Tablet Doxycycline Monoh ydrate 100 MG 09/17/2019 12:00:00 AM EDT 1.0 {tablet} suspende d Doxycycline Monohydrate 100 MG eCW1 ([facility]) Doxycycline Monohydrate 100 MG Oral Tablet Doxycycline Monoh ydrate 100 MG 09/17/2019 12:00:00 AM EDT suspended 1 tablet eCW1 ([facility]) Doxycycline Monohydrate 100 MG Oral Tablet Doxycycline Monoh ydrate 100 MG 09/17/2019 12:00:00 AM EDT 1.0 {tablet} suspende d Doxycycline Monohydrate 100 MG eCW1 ([facility]) Amoxicillin 500 MG Oral Capsule Amoxicillin 500 MG 09/16/2019 12:00 :00 AM EDT active 1 capsule eCW1 ([facility]) Terbinafine HCl 1 % Terbinafine HCl 1 % 08/02/2019 12:00:00 AM EST 1.0 {application} active Terbinafine HCl 1 % eCW1 ([facility]) Terbinafine HCl 1 % Terbinafine HCl 1 % 08/02/2019 12:00:00 AM EST 1.0 {application} active Terbinafine HCl 1 % eCW1 ([facility]) Terbinafine hydrochloride 10 MG/ML Topical Cream Terbi nafine HCl 1 % Terbinafine HCl 1 % 08/02/2019 12:00:00 AM EST active 1 application eCW1 ([facility]) Terbinafine HCl 1 % Terbinafine HCl 1 % 08/02/2019 12:00:00 AM EST active 1 application eCW1 ([facility]) Terbinafine HCl 1 % Terbinafine HCl 1 % 08/02/2019 12:00:00 AM EST 1.0 {application} suspended Terbinafine HCl 1 % eCW1 ([facility]) Terbinafine hydrochloride 10 MG/ML Topical Cream Terbi nafine HCl 1 % Terbinafine HCl 1 % 08/02/2019 12:00:00 AM EST active 1 application eCW1 ([facility]) Terbinafine HCl 1 % Terbinafine HCl 1 % 08/02/2019 12:00:00 AM EST 1.0 {application} active Terbinafine HCl 1 % eCW1 ([facility]) Terbinafine HCl 1 % Terbinafine HCl 1 % 08/02/2019 12:00:00 AM EST 1.0 {application} active Terbinafine HCl 1 % eCW1 ([facility]) Insurance Providers Payer name Policy type / Coverage type Policy ID Covered alliance party ID Covered alliance party's relationship to emerson Policy Emerson Plan Information [facility] [id number] SP [id number] [facility] [id number] SP [id number] [facility] [id number] SP [id number] [facility] Essential Plan P UNAVAILABLE S UNAVAILABLE [facility] O [id number] S [id number] ANSI-Commercial [id number] ANSI-Commercial [id number] ANSI-Commercial [id number] [employer] [place] PPO 302/307 [id number] SP [id number] ANSI-Commercial [id number] [employer] [place] [id number] SP [id number] ANSI-Commercial [id number] [employer] [place] [id number] SP [id number] BCBS/[employer] Commercial [id number] Self [id number] [id number] ANSI-Commercial [id number] ANSI-Commercial [id number] ANSI-Commercial [id number] ANSI-Commercial [id number] ANSI-Commercial [id number] ANSI-Commercial [id number] ANSI-Commercial [id number] ANSI-Commercial [id number] BCBS Ppo Commercial [id number] Self [id number] Medicaid [place] Medigap Part B [id number] Self [id number] [employer] Ins Commercial [id number] Self [id number] [facility] Plus Commercial [id number] Self [id number] EXCELLUS BCBS B [id number] S [id number] [place]BS [place] PPO 302/307 [id number] SP [id number] HMO BLUE [id number] SP [id number] MEDICAID M [id number] S [id number] SELF PAY UNAVAILABLE UNAVAILA BLE MEDICAID [id number] SP [id number] BS [place] Commercial Self BCBS OF [place] WAT[place] 306/806 [id number] SP [id number] Problems, Conditions, and Diagnoses Code Display Name Description Problem Type Effective Dates Data Source(s) 521.00 Dental caries Dental caries 08/24/2019 09:27:43 AM [facility] G47.33 [id number] Obstructive sleep apnea Problem 08/02/2019 1 2:00:00 AM EST eCW1 ([facility]) G47.33 [id number] Obstructive sleep apnea Problem 08/02/2019 1 2:00:00 AM EST eCW1 ([facility]) Surgeries/Procedures Procedure Description Date Indications Data Source(s) URINE-NO MICRO 10/13/2019 12:00:00 AM EDT eCW1 ([facility]) Results ID Date Data Source [id number] 08/28/2020 08:00:00 AM EST [facility] Name Value Range Interpretation Code Description Data Zainab rce(s) Supporting Document(s) SARS coronavirus 2 RNA Not Detected [facility] This lab was ordered by [facility] and reported by [facility]. ID Date Data Source [id number] 08/24/2020 12:00:00 AM EST [facility] Name Value Range Interpretation Code Description Data Zainab rce(s) Supporting Document(s) SARS coronavirus 2 Ag NEGATIVE [facility] This lab was ordered by [facility] and reported by [facility]. ID Date Data Source [id number] 08/21/2020 10:00:00 AM EST [facility] Name Value Range Interpretation Code Description Data Zainab rce(s) Supporting Document(s) SARS coronavirus 2 RNA Not Detected [facility] [place] This lab was ordered by [facility] and reported by [facility]. ID Date Data Source [id number] 08/17/2020 12:00:00 AM EST [facility] Name Value Range Interpretation Code Description Data Zainab rce(s) Supporting Document(s) SARS coronavirus 2 Ag NEGATIVE [facility] This lab was ordered by [facility] and reported by [facility]. ID Date Data Source [id number] 08/14/2020 06:00:00 AM EST [facility] Name Value Range Interpretation Code Description Data Zainab rce(s) Supporting Document(s) SARS coronavirus 2 RNA Not Detected [facility] This lab was ordered by [facility] and reported by [facility]. ID Date Data Source [id number] 08/03/2020 12:00:00 AM EST [facility] Name Value Range Interpretation Code Description Data Zainab rce(s) Supporting Document(s) SARS coronavirus 2 Ag NEGATIVE [facility] This lab was ordered by [facility] and reported by [facility]. ID Date Data Source [id number] 07/31/2020 06:08:00 AM EST [facility] Name Value Range Interpretation Code Description Data Zainab rce(s) Supporting Document(s) SARS coronavirus 2 RNA Not Detected [facility] This lab was ordered by [facility] and reported by [facility]. ID Date Data Source [id number] 07/27/2020 12:00:00 AM EST [facility] Name Value Range Interpretation Code Description Data Zainab rce(s) Supporting Document(s) SARS coronavirus 2 Ag Negative [facility] This lab was ordered by [facility] and reported by [facility]. ID Date Data Source [id number] 07/24/2020 06:23:00 AM EST [facility] Name Value Range Interpretation Code Description Data Zainab rce(s) Supporting Document(s) SARS coronavirus 2 RNA Not Detected [facility] This lab was ordered by [facility] and reported by [facility]. ID Date Data Source [id number] 07/20/2020 12:00:00 AM EST [facility] Name Value Range Interpretation Code Description Data Zainab rce(s) Supporting Document(s) SARS-CoV2 Rapid Antigen Negative [facility] This lab was ordered by [facility] and reported by [facility]. ID Date Data Source [id number] 07/17/2020 08:00:00 AM EST [facility] Name Value Range Interpretation Code Description Data Zainab rce(s) Supporting Document(s) SARS coronavirus 2 RNA Not Detected [facility] This lab was ordered by [facility] and reported by [facility]. ID Date Data Source [id number] 07/14/2020 12:00:00 AM EST [facility] Name Value Range Interpretation Code Description Data Zainab rce(s) Supporting Document(s) SARS-CoV2 Rapid Antigen Negative [facility] This lab was ordered by [facility] and reported by [facility]. ID Date Data Source [id number] 06/26/2020 07:00:00 AM EST [facility] Name Value Range Interpretation Code Description Data Zainab rce(s) Supporting Document(s) SARS coronavirus 2 RNA [facility] This lab was ordered by [facility] and reported by [facility]. ID Date Data Source [id number] 06/19/2020 08:00:00 AM EST [facility] Name Value Range Interpretation Code Description Data Zainab rce(s) Supporting Document(s) SARS coronavirus 2 RNA [facility] This lab was ordered by [facility] and reported by [facility]. ID Date Data Source [id number] 06/12/2020 05:15:00 AM EST [facility] Name Value Range Interpretation Code Description Data Zainab rce(s) Supporting Document(s) SARS coronavirus 2 RNA [facility] This lab was ordered by [facility] and reported by [facility]. ID Date Data Source [id number] 06/05/2020 06:00:00 AM EST [facility] Name Value Range Interpretation Code Description Data Zainab rce(s) Supporting Document(s) SARS coronavirus 2 RNA [facility] This lab was ordered by [facility] and reported by [facility]. ID Date Data Source [id number] 06/02/2020 12:00:00 AM EST [facility] Name Value Range Interpretation Code Description Data Zainab rce(s) Supporting Document(s) SARS-CoV2 Rapid Antigen [facility]. ID Date Data Source [id number] 05/29/2020 09:00:00 AM EST [facility] Name Value Range Interpretation Code Description Data Zainab rce(s) Supporting Document(s) SARS coronavirus 2 RNA [facility] This lab was ordered by [facility] and reported by [facility]. ID Date Data Source [id number] 05/22/2020 06:30:00 AM EST [facility] Name Value Range Interpretation Code Description Data Zainab rce(s) Supporting Document(s) SARS coronavirus 2 RNA [facility] This lab was ordered by [facility] and reported by [facility]. ID Date Data Source [id number] 05/15/2020 08:00:00 AM EST [facility] Name Value Range Interpretation Code Description Data Zainab rce(s) Supporting Document(s) SARS coronavirus 2 RNA [facility] This lab was ordered by [facility] and reported by [facility]. ID Date Data Source [id number] 05/08/2020 06:00:00 AM EST [facility] Name Value Range Interpretation Code Description Data Zainab rce(s) Supporting Document(s) SARS coronavirus 2 RNA [facility] This lab was ordered by [facility] and reported by [facility]. ID Date Data Source [id number] 05/01/2020 05:30:00 AM EDT [facility] Name Value Range Interpretation Code Description Data Zainab rce(s) Supporting Document(s) SARS coronavirus 2 RNA [facility] This lab was ordered by [facility] and reported by [facility]. ID Date Data Source [id number] 04/24/2020 05:30:00 AM EDT [facility] Name Value Range Interpretation Code Description Data Zainab rce(s) Supporting Document(s) SARS coronavirus 2 RNA [facility] This lab was ordered by [facility] and reported by [facility]. ID Date Data Source [id number] 04/17/2020 05:45:00 AM EDT [facility] Name Value Range Interpretation Code Description Data Zainab rce(s) Supporting Document(s) SARS coronavirus 2 RNA [facility] This lab was ordered by [facility] and reported by [facility]. ID Date Data Source [id number] 04/10/2020 05:30:00 AM EDT [facility] Name Value Range Interpretation Code Description Data Zainab rce(s) Supporting Document(s) SARS coronavirus 2 RNA [facility] This lab was ordered by [facility] and reported by [facility]. ID Date Data Source [id number] 04/03/2020 08:00:00 AM EDT [facility] Name Value Range Interpretation Code Description Data Zainab rce(s) Supporting Document(s) SARS coronavirus 2 RNA [facility] This lab was ordered by [facility] and reported by [facility]. ID Date Data Source [id number] 03/27/2020 07:30:00 AM EDT [facility] Name Value Range Interpretation Code Description Data Zainab rce(s) Supporting Document(s) SARS coronavirus 2 RNA [facility] This lab was ordered by [facility] and reported by [facility]. ID Date Data Source [id number] 03/20/2020 06:00:00 AM EDT [facility] Name Value Range Interpretation Code Description Data Zainab rce(s) Supporting Document(s) SARS coronavirus 2 RNA [facility] This lab was ordered by [facility] and reported by [facility]. ID Date Data Source [id number] 03/15/2020 06:00:00 AM EDT [facility] Name Value Range Interpretation Code Description Data Zainab rce(s) Supporting Document(s) SARS coronavirus 2 RNA [facility] This lab was ordered by [facility] and reported by [facility]. ID Date Data Source [id number] 03/06/2020 07:06:00 AM EDT [facility] Name Value Range Interpretation Code Description Data Zainab rce(s) Supporting Document(s) SARS coronavirus 2 RNA [facility] This lab was ordered by [facility] and reported by [facility]. ID Date Data Source [id number] 02/28/2020 08:43:00 AM EDT [facility] Name Value Range Interpretation Code Description Data Zainab rce(s) Supporting Document(s) SARS coronavirus 2 RNA [facility] This lab was ordered by [facility] and reported by [facility]. ID Date Data Source [id number] 02/22/2020 09:06:00 AM EDT [facility] Name Value Range Interpretation Code Description Data Zainab rce(s) Supporting Document(s) SARS-CoV-2, [facility]LIE [facility]ed [facility] was performed using the alexx(R) SARS-CoV-2 test.This test was developed and its performance characteristics determinedby [facility]. This test has not been FDA cleared orapproved. This test has been authorized by FDA under an Emergency UseAuthorization (EUA). This test is only authorized for the duration oftime the declaration that circumstances exist justifying theauthorization of the emergency use of in vitro diagnostic tests fordetection of SARS-CoV-2 virus and/or diagnosis of COVID-19 infectionunder section 564(b)(1) of the Act, 21 U.S.C. 360bbb-3(b)(1), unlessthe authorization is terminated or revoked sooner.When diagnostic testing is negative, the possibility of a falsenegative result should be considered in the context of a patient'srecent exposures and the presence of clinical signs and symptomsconsistent with COVID-19. An individual without symptoms of COVID-19and who is not shedding SARS-CoV-2 virus would expect to have anegative (not detected) result in this assay. ID Date Data Source [id number] 02/22/2020 09:06:00 AM EDT [facility] Name Value Range Interpretation Code Description Data Zainab rce(s) Supporting Document(s) Inpatient [facility] Received ID Date Data Source [id number] 01/24/2020 06:30:00 AM EDT [facility] Name Value Range Interpretation Code Description Data Zainab rce(s) Supporting Document(s) SARS coronavirus 2 RNA [facility] This lab was ordered [facility] [facility] and reported by [facility]. ID Date Data Source [id number] 01/17/2020 11:02:00 AM EDT [facility] Name Value Range Interpretation Code Description Data Zainab rce(s) Supporting Document(s) SARS coronavirus 2 RNA [facility] This lab was ordered by [facility] and reported by [facility]. ID Date Data Source [id number] 01/10/2020 09:30:00 AM EDT [facility] Name Value Range Interpretation Code Description Data Zainab rce(s) Supporting Document(s) SARS coronavirus 2 RNA [facility] This lab was ordered by [facility] and reported by [facility]. ID Date Data Source [id number] 01/03/2020 09:06:00 AM EDT [facility] Name Value Range Interpretation Code Description Data Zainab rce(s) Supporting Document(s) SARS CORONAVIRUS 2 RNA [facility] This lab was ordered by [facility] and reported by [facility]. ID Date Data Source [id number] 12/27/2019 05:30:00 AM EDT [facility] Name Value Range Interpretation Code Description Data Zainab rce(s) Supporting Document(s) SARS CORONAVIRUS 2 RNA [facility] This lab was ordered by [facility] and reported by [facility]. ID Date Data Source [id number] 12/20/2019 06:00:00 AM EDT [facility] Name Value Range Interpretation Code Description Data Zainab rce(s) Supporting Document(s) SARS CORONAVIRUS 2 RNA [facility] This lab was ordered by [facility] and reported by [facility]. ID Date Data Source [id number] 12/13/2019 06:00:00 AM EDT [facility] Name Value Range Interpretation Code Description Data Zainab rce(s) Supporting Document(s) SARS CORONAVIRUS 2 RNA [facility] This lab was ordered by [facility] and reported by [facility]. ID Date Data Source [id number] 12/09/2019 11:20:00 AM EDT [facility] Name Value Range Interpretation Code Description Data Zainab rce(s) Supporting Document(s) SARS CORONAVIRUS 2 RNA [facility] This lab was ordered by [facility] and reported by [facility]. ID Date Data Source CBC with Differential 10/13/2019 12:00:00 AM EDT eCW1 ([facility]) Name Value Range Interpretation Code Description Data Zainab rce(s) Supporting Document(s) 5.6 4.0-10.0 WHITE BLOOD COUNT eCW1 ([facility]) 4.53 4.00-5.40 RED BLOOD COUNT eCW1 ([facility]) 13.6 12.0-15.5 HEMOGLOBIN eCW1 ([facility]) 89.0 80.0-96.0 MEAN CORPUSCULAR VOLUME e CW1 ([facility]) 40.3 36.0-47.0 HEMATOCRIT eCW1 ([facility]) 30.0 27.0-33.0 MEAN CORPUSCULAR HEMOGLOB IN eCW1 ([facility]) 282 150-450 PLATELET COUNT, AUTOMATED eCW1 ([facility]) 33.7 32.0-36.5 MEAN CORPUSCULAR HGB CONC eCW1 ([facility]) 49.3 36.0-66.0 NEUTROPHILS % eCW1 ([facility]) 11.9 11.5-14.5 RED CELL DISTRIBUTION WID TH eCW1 ([facility]) 0.7 0.0-1.0 BASO % eCW1 ([facility]) 4.1 0.0-3.0 EOS % eCW1 ([facility]) 8.8 0.0-5.0 MONO % eCW1 ([facility]) 2.7 1.5-8.5 NEUTROPHILS # eCW1 ([facility]) 36.9 24.0-44.0 LYMPH % eCW1 ([facility]) 0.0 0.0-0.2 BASO # eCW1 ([facility]) 0.2 0.0-0.5 EOS # eCW1 ([facility]) 2.1 1.5-5.0 LYMPH # eCW1 ([facility]) 0.5 0.0-0.8 MONO # eCW1 ([facility]) ID Date Data Source [id number] 08/24/2019 08:01:27 AM [facility] Current Problems: Dental caries (ICD-521 .00) (FNJ21-L57.9)Current Medications: * CLARATIN * BIOTIN * MULTI VIT Current Allergies: * PENICILLIN (Critical)* SULFA DRUGS (Critical) Dental Chart: Procedures:Type - CDT Code - Description B - (D7140) Extraction, erupted tooth or exposed root (elevation and/or forceps removal) on Tooth # 10 (Performed by Víctor Walter DDS) Chart Notes:karely (Aug 24 2019 9:27AM): RMhx (-) per ptBP: 118/72OS consent obtainedTopical 20% Benzocaine, 1.5 carp of 4% Septocaine with 1:100k epi givenSimple extraction of #10 with forcep and elevator. No complication. Hemostasis achieved using pressure. POI given. Pt dismissed in stable condition.RX: N/APt was cooperativeAssisted by ASNV: Víctor Polk DDS by karely (08/24/2019 9:27 AM): Tooth Notes and Watches: Assessment & Plan Problems:Added: Dental caries (ICD-521.00) (ICD10- K02.9)Medications:CLARATINBIOTINMULTI VITAllergies:* PENICILLIN (Critical)* SULFA DRUGS (Critical) Name Value Range Interpretation Code Description Data Zainab rce(s) Supporting Document(s) ID Date Data Source [id number] 08/11/2019 10:00:46 AM [facility] Current Medications: * CLARATIN * BIOTIN * MULTI VIT Current Allergies: * PENICILLIN (Critical)* SULFA DRUGS (Critical) Dental Chart: Procedures:Type - CDT Code - Description B - (D2331) Resin, 2 surfaces, anterior on Tooth # 6 on Tooth Surface DL (Performed by Víctor Walter DDS) B - (D2331) Resin, 2 surfaces, anterior on Tooth # 7 on Tooth Surface LF (Performed by Víctor Walter DDS) Treatments:Type - CDT Code - Description T - (D7140) Extraction, erupted tooth or exposed root (elevation and/or forceps removal) on Tooth # 10 (Performed by Víctor Walter DDS) Chart Notes:karely (Aug 11 2019 11:04AM): Rmhx(-) per ptCC: none. Operative: #6-DL #7-FL decay removed with highspeed bur, self etching [place] M+ (Voco) placed and light-cured, A2 packable [place] (Voco) composite placed and light-cured. Bite occlusion checked, adjusted, and polished.Anesthesia: 20% Benzocaine topical, 1 carp 4% Septocaine w/ 1:100,000 epi upper anterior infiltrationNo complications. POI. A ssisted by EDWIN . Pt was cooperative.NV: Víctor Durant DDS by karely (08/11/2019 11:03 AM): Tooth Notes and Watches: Assessment & Plan Medications:CLARATINBIOTINMULTI VITAllergies:* PENICILLIN (Critical)* SULFA DRUGS (Critical) Name Value Range Interpretation Code Description Data Zainab rce(s) Supporting Document(s) ID Date Data Source [id number] 08/09/2019 03:19:05 PM [facility] Vital SignsBlood Pressure: 124/89 Patient History Medical History:DiverticulitisSleep ApneaSurgical History:Hysterectomy (Complete)Social/Personal History: Smoking Status: never smokerChief Complaint: Routine CleaningVisit Type: ExamNo known problems.Current Medications: * CLARATIN * BIOTIN * MULTI VIT Medication list reviewed during this update.Current Allergies: * PENICILLIN (Critical)* SULFA DRUGS (Critical)Past Medical History:(reviewed - no changes required) DiverticulitisSleep Apnea Dental Chart: Procedures:Type - CDT Code - Description B - (D0150) Comprehensive oral evaluation - new or established patient (Performed by Jose Angel BOWMAN, Víctor) B - (D1110) Prophylaxis, adult (Performed by Nia Loving RDH) B - (D0330) Panoramic film (Performed by Nia Loving RDH) B - (D0230) Intraoral, periapical, each additional radiographic image on Tooth # 11 (Performed by Nia Loving RDH) B - (D0230) Intraoral, periapical, each additional radiographic image on Tooth # 22 (Performed by Nia Loving RDH) B - (D0230) Intraoral, periapical, each additional radiographic image on Tooth # 24 (Performed by Nia Loving RDH) B - (D0230) Intraoral, periapical, each additional radiographic image on Tooth # 27 (Performed by Nia Loving RDH) B - (D0220) Intraoral, periapical, first radiographic image on Tooth # 6 (Performed by Inder TREVIÑONia) B - (D0230) Intraoral, periapical, each additional radiographic image on Tooth # 9 (Performed by Inder TREVIÑONia) Treatments:Type - CDT Code - Description T - (D2335) Resin, 4 or more surfaces or involving incisal angle (anterior) on Tooth # 8 on Tooth Surface DMLFI (Performed by Inder TREVIÑONia) T - (D5214) Mandibular partial denture, cast metal framework with resin denture bases (including retentive/clasping materials, rests, and teeth) on Tooth # 29,30,31,19,18,20 (Performed by Inder TREVIÑONia) T - (D2331) Resin, 2 surfaces, anterior on Tooth # 11 on Tooth Surface ML (Performed by Loving RDNia) T - (D2335) Resin, 4 or more surfaces or involving incisal angle (anterior) on Tooth # 9 on Tooth Surface MDFLI (Performed by Loving RDNia) T - (D7140) Extraction, erupted tooth or exposed root (elevation and/or forceps removal) on Tooth # 10 (Performed by Loving RDNia) T - (D2331) Resin, 2 surfaces, anterior on Tooth # 23 on Tooth Surface DF (Performed by Loving RDNia) T - (D5213) Maxillary partial denture - cast metal framework with resin denture bases (including retentive/clasping materials, rests and teeth) on Tooth # 2,3,4,5,10,12,13,14,15 (Performed by Inder TREVIÑONia) T - (D2332) Resin, 3 surfaces, anterior on Tooth # 7 on Tooth Surface MLF (Performed by Loving RDNia) Existing:Type - CDT Code - Description[E] [employer] On #28 Surface O[E] Resin-Based Composite - Direct On #10 Surface M, #7 Surface DM, #8 Surface D, #9 Surface MD[E] Missing - [place] and [place] On #1 Surface O Region XR, #12 Surface O Region XR, #13 Surface O Region XR, #14 Surface O Region XR, #15 Surface O Region XR, #16 Surface O Region XR, #17 Surface O Region XR, #18 Surface O Region XR, #19 Surface O Region XR, #2 Surface O Region XR, #20 [place] rface O Region XR, #29 Surface O Region XR, #3 Surface O Region XR, #30 Surface O Region XR, #31 Surface O Region XR, #32 Surface O Region XR, #4 Surface O Region XR, #5 Surface O Region XR Chart Notes:karely (Aug 09 2019 4:46PM): RMH- Diverticulitis. ALLERGY to Penicillin, Sulfa CC:I want to have a nice smile again. Reviewed Xrays. Exam: caries detected. OCS: WNL, IO/ EO completed, No significant hard findings upon clinical exam Pt. has an existing upper and lower partial which she does not wear and was fabricated elsewhere. Pt. did not bring her partial with her.Extract #10 when insurance authorizes partialPt was cooperative.OHI givenReferral: N/ANV:restorationFoNia nguyễn RDH by karely (08/09/2019 4:46 PM): ; joaquina (Aug 09 2019 4:35PM): CC: Establish dental home -- wants to fix her front teethRMH: New pt; diverticulitisAllergies: Penicillin and sulfa drugsSmoking Status: NeverBP: WNLEO/IO: Oral cancer screening performed - no abnormalites noted; normal mucosa with no white or raised pa tches. No lymphadenopathy. No poping or clicking of the TMJ. Pt has fair oral health and good oral hygiene. Several areas of decay per doc. 10 is into the pulp and needs ext. Pt is aware of the list for major treatment and has been added for upper and lower dentures. Pt has light calc, no visbile plaque, and no bleeding. Pt gums are pink and firm. Behavior: Very compliantTX: Adult prophy, Perio chart, Pano, 6 PA, and exam by Dr. Morales: Spoke to pt about brushing. Talk to the pt about the importance of routine dental visits. NV: Restorative. 6MRCFowler RDH, Nia kunz (08/09/2019 4:35 PM): Tooth Notes and Watches: Assessment & Plan Medications:CLARATINBIOTINMULTI VITMedication Changes:Added: * MULTI VIT* BIOTIN* CLARATINAllergies:* PENICILLIN (Critical)* SULFA DRUGS (Critical) Name Value Range Interpretation Code Description Data Zainab rce(s) Supporting Document(s) ID Date Data Source Basic Metabolic Profile (BMP) 08/02/2019 12:00:00 AM EST eCW 1 ([facility]) Name Value Range Interpretation Code Description Data Zainab rce(s) Supporting Document(s) 0.94 0.55-1.30 CREATININE FOR GFR eCW1 ([facility]) 15 7-18 BLOOD UREA NITROGEN eCW1 ([facility]) 74 70-100 GLUCOSE, FASTING eCW1 ([facility]) > 60.0 >58 GLOMERULAR FILTRATION RATE eCW 1 ([facility]) 31 21-32 CARBON DIOXIDE LEVEL eCW1 ([facility]) 4.8 3.5-5.1 POTASSIUM SERUM eCW1 ([facility]) 106 98-107 CHLORIDE LEVEL eCW1 ([facility]) 142 136-145 SODIUM LEVEL eCW1 ([facility]) 8.9 8.5-10.1 CALCIUM LEVEL eCW1 ([facility]) ID Date Data Source LIPID PANEL (CARDIAC RISK) 08/02/2019 12:00:00 AM EST eCW1 ( [facility]) Name Value Range Interpretation Code Description Data Zainab rce(s) Supporting Document(s) Cholesterol [Moles/volume] in Serum or Plasma 205 <200 CHOLESTEROL LEVEL eCW1 ([facility]) Triglyceride [Mass/volume] in Serum or Plasma by calculation 255 <150 TRIGLYCERIDES LEVEL eCW1 ([facility]) 164 NON-HDL-C eCW1 ([facility]) 5.000 <5 CHOLESTEROL RISK RATIO eCW1 ([facility]) Cholesterol in LDL [Mass/volume] in Serum or Plasma by calculation 113 <100 LDL CHOLESTEROL eCW1 ([facility]) Cholesterol in HDL [Moles/volume] in Serum or Plasma 41 >40 HDL CHOLESTEROL eCW1 ([facility]) Procedure Social History Code Duration Value Status Description Data Source(s ) Smoking 05/15/2020 12:00:00 AM EST Never Smoker completed Never S moker eCW1 ([facility]) Smoking 11/25/2019 12:00:00 AM EDT Patient has never smoked co mpleted Patient has never smoked MEDENT ([facility]) Smoking 10/13/2019 12:00:00 AM EDT Never Smoker completed Never S moker eCW1 ([facility]) Smoking 10/13/2019 12:00:00 AM EDT Never Smoker completed Never S moker eCW1 ([facility]) Smoking 10/13/2019 12:00:00 AM EDT Never Smoker completed Never S moker eCW1 ([facility]) Smoking 10/13/2019 12:00:00 AM EDT Never Smoker completed Never S moker eCW1 ([facility]) Vital Signs ID Date Data Source UNK Name Value Range Interpretation Code Description Data Source(s) Body surface area Derived from formula 1.94 m2 1.94 m2 MEDENT ([facility]) Body weight 82.102 kg 82.102 kg MEDENT ([facility]) [place] body weight 135 [lb_av] 135 [lb_av] MEDEN T ([facility]) Body mass index (BMI) [Ratio] 28.3 kg/m2 28.3 k g/m2 [facility] ([facility]) Body weight 181.00 [lb_av] 181.00 [lb_av] MEDEN T ([facility]) Body height 67 [in_i] 67 [in_i] [facility] ([facility]) 5'7" Diastolic blood pressure 64 mm[Hg] 64 mm[Hg] [facility] Systolic blood pressure 122 mm[Hg] 122 mm[Hg] M EDENT ([facility]) Diastolic blood pressure 84 mm[Hg] 84 mm[Hg] eCW1 ([facility]) Systolic blood pressure 122 mm[Hg] 122 mm[Hg] e CW1 ([facility]) Body temperature 98.3 [degF] 98.3 [degF] eCW1 ( [facility]) Respiratory rate 18 /min 18 /min eCW1 ([facility]) Heart rate 108 /min 108 /min eCW1 ([facility]) Body mass index (BMI) [Ratio] 27.46 kg/m2 27.46 kg/m2 eCW1 ([facility]) Body height 67.5 [in_i] 67.5 [in_i] eCW1 ([facility]) Body weight 178 [lb_av] 178 [lb_av] eCW1 ([facility]) Body surface area Derived from formula 1.91 m2 1.91 m2 [facility] ([facility]) Body weight 80.797 kg 80.797 kg [facility] ([facility]) [place] body weight 130 [lb_av] 130 [lb_av] MEDEN T ([facility]) Body mass index (BMI) [Ratio] 28.3 kg/m2 28.3 k g/m2 [facility] ([facility]) Body weight 178.12 [lb_av] 178.12 [lb_av] MEDEN T ([facility]) Body height 66.5 [in_i] 66.5 [in_i] [facility] ([facility]) 5'6.50" Body temperature 98.2 [degF] 98.2 [degF] [facility] ([facility]) Oxygen saturation in Arterial blood by Pulse oximetry 98 % 98 % [facility] ([facility], ) Heart rate 60 /min 60 /min MEDENT ([facility], ) Diastolic blood pressure 62 mm[Hg] 62 mm[Hg] MEDENT ([facility], ) Systolic blood pressure 106 mm[Hg] 106 mm[Hg] M EDENT ([facility], ) Diastolic blood pressure 76 mm[Hg] 76 mm[Hg] eCW1 ([facility]) Systolic blood pressure 114 mm[Hg] 114 mm[Hg] e CW1 ([facility]) Body temperature 97.6 [degF] 97.6 [degF] eCW1 ( [facility]) Respiratory rate 18 /min 18 /min eCW1 ([facility]) Heart rate 93 /min 93 /min eCW1 ([facility]) Body mass index (BMI) [Ratio] 26.88 kg/m2 26.88 kg/m2 eCW1 ([facility]) Body height 67.5 [in_us] 67.5 [in_us] eCW1 ([facility]) Body weight Measured 174.2 [lb_av] 174.2 [lb_av ] eCW1 ([facility]) Diastolic blood pressure 60 mm[Hg] 60 mm[Hg] eCW1 ([facility]) Systolic blood pressure 110 mm[Hg] 110 mm[Hg] e CW1 ([facility]) Body temperature 97.4 [degF] 97.4 [degF] eCW1 ( [facility]) Respiratory rate 18 /min 18 /min eCW1 ([facility]) Heart rate 76 /min 76 /min eCW1 ([facility]) Body mass index (BMI) [Ratio] 26.54 kg/m2 26.54 kg/m2 W1 ([facility]) Body height 67.5 [in_us] 67.5 [in_us] eCW1 ([facility]) Body weight Measured 172 [lb_av] 172 [lb_av] eC W1 ([facility]) Diastolic blood pressure 66 mm[Hg] 66 mm[Hg] eCW1 ([facility]) Systolic blood pressure 108 mm[Hg] 108 mm[Hg] e CW1 ([facility]) Body temperature 98.2 [degF] 98.2 [degF] eCW1 ( [facility]) Respiratory rate 20 /min 20 /min eCW1 ([facility]) Heart rate 78 /min 78 /min eCW1 ([facility]) Body mass index (BMI) [Ratio] 26.11 kg/m2 26.11 kg/m2 eCW1 ([facility]) Body height 67.5 [in_us] 67.5 [in_us] eCW1 ([facility]) Body weight Measured 169.2 [lb_av] 169.2 [lb_av ] eCW1 ([facility]) Patient Treatment Plan of Care Planned Activity Planned Date Details Description Data Source (s) Omeprazole 20 MG Delayed Release Oral Capsule 05/15/2020 12:00:00 A M EST eCW1 ([facility]) Doxycycline Monohydrate 100 MG Oral Tablet 09/17/2019 12:00:00 AM E DT eCW1 ([facility]) Amoxicillin 500 MG Oral Capsule 09/16/2019 12:00:00 AM EDT eCW1 ([facility]) Terbinafine hydrochloride 10 MG/ML Topical Cream 08/02/2019 12:00:0 0 AM EST eCW1 ([facility])
[2020-09-01 14:30] VITALS: BP 119/79
== END 2020-09-01 14:36 | disposition home or self-care (01) ==
LOC: M OPP 12:32
PROVIDERS: ATTEND Internal Medicine Gastroenterology
DX: R13.10 Dysphagia, unspecified (principal); R93.3 Abnormal findings on diagnostic imaging of other parts of digestive tract; K21.00 Gastro-esophageal reflux disease with esophagitis, without bleeding; D13.0 Benign neoplasm of esophagus; D13.1 Benign neoplasm of stomach; K29.70 Gastritis, unspecified, without bleeding; M79.7 Fibromyalgia; J45.909 Unspecified asthma, uncomplicated; G47.30 Sleep apnea, unspecified; Z88.0 Allergy status to penicillin; Z88.2 Allergy status to sulfonamides; Z88.5 Allergy status to narcotic agent; Z79.899 Other long term (current) drug therapy; Z80.0 Family history of malignant neoplasm of digestive organs; Z80.1 Family history of malignant neoplasm of trachea, bronchus and lung
CPT/HCPCS: 43239; 88305; J3010

== ENCOUNTER → 2021-03-22 | Outpatient (REF) | payer OTHER ==
[~2021-03-22] MED LIST changes: -NS 1,000 ML IV ONE; +OMEP40CA4 PO; -OMEP40CA97 PO
[2021-03-22 22:59] LABS: APPEARANCE, URINE HAZY (CLEAR); BILIRUBIN, URINE AUTO NEGATIVE (NEGATIVE); BLOOD, URINE BLOOD 2+ (NEGATIVE); COLOR, URINE STRAW (YELLOW); GLUCOSE, URINE (UA) AUTO NEGATIVE (NEGATIVE); KETONE, URINE AUTO NEGATIVE (NEGATIVE); LEUKOCYTE ESTERASE, URINE AUTO 3+ (NEGATIVE); NITRITE, URINE AUTO NEGATIVE (NEGATIVE); PROTEIN, URINE AUTO NEGATIVE (NEGATIVE); SPECIFIC GRAVITY URINE AUTO 1.005 (1.002-1.035); UROBILINOGEN, URINE AUTO 0.2 mg/dL (0.0-2.0)
[2021-03-22 23:06] LABS: BACTERIA, URINE AUTO 1+ (NEGATIVE); MUCUS, URINE SMALL (NEGATIVE); RBC, URINE AUTO 7 /HPF (0-3); SQUAMOUS EPITHELIAL CELL UR AU 0 /HPF (0-6); WBC, URINE AUTO 176 /HPF (0-3)
== END ==
LOC: M LAB REF 22:44
PROVIDERS: ATTEND Physician Assistant
DX: R30.0 Dysuria (principal)

== ENCOUNTER → 2021-11-09 | Outpatient (REF) | payer OTHER ==
[2021-11-09 22:56] LABS: APPEARANCE, URINE CLEAR (CLEAR); BACTERIA, URINE AUTO NEGATIVE (NEGATIVE); BILIRUBIN, URINE AUTO NEGATIVE (NEGATIVE); BLOOD, URINE BLOOD NEGATIVE (NEGATIVE); COLOR, URINE YELLOW (YELLOW); GLUCOSE, URINE (UA) AUTO NEGATIVE (NEGATIVE); KETONE, URINE AUTO NEGATIVE (NEGATIVE); LEUKOCYTE ESTERASE, URINE AUTO NEGATIVE (NEGATIVE); NITRITE, URINE AUTO NEGATIVE (NEGATIVE); PROTEIN, URINE AUTO NEGATIVE (NEGATIVE); RBC, URINE AUTO 0 /HPF (0-3); SQUAMOUS EPITHELIAL CELL UR AU 0 /HPF (0-6); UROBILINOGEN, URINE AUTO 0.2 mg/dL (0.0-2.0); WBC, URINE AUTO 0 /HPF (0-3)
[2021-11-10 01:48] LABS: GC DNA AMPLIFICATION NEGATIVE (NEGATIVE)
== END ==
LOC: M LAB REF 22:47
PROVIDERS: ATTEND Physician Assistant
DX: N39.0 Urinary tract infection, site not specified (principal)

== ENCOUNTER → 2022-04-03 | Outpatient (REF) ==
[2022-04-03 14:28] LABS: RSV AMPLIFICATION NEGATIVE (NEGATIVE)
== END ==
LOC: M LABSMTC 10:58
PROVIDERS: ATTEND Family Medicine
DX: Z20.822 Contact with and (suspected) exposure to COVID-19 (principal)

== ENCOUNTER → 2022-05-01 | Outpatient (REF) | LOC: M LABSMTC 09:15 | PROVIDERS: ATTEND Family Medicine | DX: Z20.822 Contact with and (suspected) exposure to COVID-19 (principal) ==

== ENCOUNTER → 2022-08-14 | Outpatient (REF) ==
[2022-08-14 11:06] LABS: RSV AMPLIFICATION NEGATIVE (NEGATIVE)
== END ==
LOC: M LABSMTC 09:05
PROVIDERS: ATTEND Family Medicine
DX: Z11.59 Encounter for screening for other viral diseases (principal)

== ENCOUNTER → 2025-01-07 | Outpatient (RCR) ==
[~2025-01-07] MED LIST changes: -BIOT50004 PO; +BIOT5CAP8 PO; +LORA-1041 PO; -LORA-674 PO; +MECL-209 PO; -MECL1TAB31 PO
== END ==
LOC: M EMPSKH 12-09 08:12
PROVIDERS: ATTEND Family Medicine
DX: Z11.52 Encounter for screening for COVID-19 (principal)